=== PATIENT | female | born 1975 ===

== ENCOUNTER → 2020-07-20 08:46 | Outpatient (CLI) | payer OTHER, SELFPAY ==
[2020-07-20] MEDS: COVID-19 VACC #1, MRNA(MOD) 100 MCG/0.5 ML VIAL IM (08:48)
== END ==
PROVIDERS: Visit Provider Internal Medicine
DX: Z23 Encounter for immunization (principal)
CPT/HCPCS: 0011A; 91301

== ENCOUNTER → 2020-08-17 08:27 | Outpatient (CLI) | payer OTHER, SELFPAY ==
[2020-08-17] MEDS: COVID-19 VACC #2, MRNA(MOD) 100 MCG/0.5 ML VIAL IM (08:34)
== END ==
PROVIDERS: Visit Provider Internal Medicine
DX: Z23 Encounter for immunization (principal)
CPT/HCPCS: 0012A; 91301

== ENCOUNTER 2020-10-25 12:23 | Emergency (ER) | payer OTHER, SELFPAY ==
[2020-10-25 12:26] VITALS: BP 125/81; PULSE 80; RESP 18; TEMP 36.7; O2SAT 100; BMI 19.1
[2020-10-25 13:05] VITALS: BP 134/79; PULSE 79; RESP 24; TEMP 36.8; O2SAT 99
--- NOTE | 2020-10-25 15:20 | ED.ALLEREA ---
HPI - Allergic Reaction General Chief complaint: Allergic Reaction Stated complaint: 20 WASP STINGS, ALLERGIC Time Seen by Provider: 10/25/20 15:18 Source: patient Mode of arrival: Ambulatory Limitations: no limitations History of Present Illness HPI narrative: This is a 45-year-old female comes emergency department with complaint of multiple wasp stings. Patient was running today on [address] in the [facility]. She thinks her daughter may have run through a wasp nest and she was stung approximately 20 times on her torso and buttocks and extremities. Patient states she did note while she was running initially she had some tightening of her airway, she had hives and itchiness even his ears felt itchy. This slowly subsided. Her hives and swelling have been improving while she has been here as well as her itching. Patient is otherwise healthy no other major medical issues. She states she was stung 4 times last summer and had subsequently strong reactions the time with larger larger areas of hives. The very last time she felt a little tightness in her throat which resolved and this occurred again today and seemed a little bit stronger. 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 Related Data Previous Rx's Medication Instructions Recorded epinephrine 0.3 mg/0.3 mL 0.3 mg IM Q5-15M PRN #2 ea 10/25/20 injection, auto-injector (EpiPen) prednisone 10 mg tablet 10 mg PO DAILY #3 tab 10/25/20 Allergies Allergy/AdvReac Type Severity Reaction Status Date / Time No Known Drug Allergies Allergy Verified 10/25/20 13:51 Review of Systems Review of Systems ROS Unobtainable: All systems reviewed & are unremarkable except as noted in HPI and below Patient History Social History Smoking Status: Never smoker Smoking Status: Never smoker Substance Use Type: does not use Exam Narrative Exam Narrative: GEN: well nourished, well appearing female, alert and oriented x 3, patient appears to be in mild distress. HEENT: Atraumatic, pupils are equal round reactive to light, extraocular movements are intact, nares are clear, throat is clear without any exudates, erythema, tonsillar enlargement or uvular deviation HEART: Regular rate and rhythm without murmur, clicks, rubs. No carotid bruits, pulses are equal in upper and lower extremities LUNGS:Lungs clear to auscultation, no wheezes, rales, crackles, chest moves symmetrically ABD:bowel sounds normal, soft, non-tender, no guarding, rebound, rigidity, no masses noted, no hepatosplenomegaly MSCL: Non-tender, no muscle atrophy, muscles strength 5/5 upper and lower extremities, full range of motion, normal gait NEURO:CN 2-12 intact, sensation normal. SKIN: Patient has multiple small erythematous papules consistent with wasp or insect stings. No stingers are present. Patient has some faint redness but she states her hives have been improving and I am unable to visualize any large hives currently. Patient does have changes on her torso, back as well as extremities and buttock. Initial Vital Signs Initial Vital Signs: Vital Signs Temperature 98.1 F 10/25/20 12:26 Pulse Rate 80 10/25/20 12:26 Respiratory Rate 18 10/25/20 12:26 Blood Pressure 125/81 10/25/20 12:26 Pulse Oximetry 100 10/25/20 12:26 Course Vital Signs Vital signs: Vital Signs - 8 hr 10/25/20 15:57 Pulse Rate 80 Respiratory Rate 17 Blood Pressure 114/56 L Pulse Oximetry 96 MDM - Allergic Reaction MDM Narrative Medical decision making narrative: This is a 45-year-old female with multiple stings from likely wasps and a reaction. Patient's symptoms improved without intervention but she states she has had increasingly more frequent symptoms with subsequent stings over the years. She was provided with an EpiPen as she did have a sensation of tightness in her throat which had resolved by the time she had arrived. Discharge Plan Departure Patient Disposition: Home Clinical Impression: Allergic to insect bites and stings Instructions: DI for Anaphylaxis Activity Restrictions/Additional Instructions: Follow-up your any other new or concerning symptoms. You may take Benadryl 1-2 tablets every 6 hours as needed for symptoms. Take steroids once daily till gone. Start the first dose today. Prescription sent to [facility] in [place]. If needed a prescription for epi pens was sent to [facility] in [place]. This is a medication that should be refilled once . Use as prescribed. Please return for new swelling of her airway, lips, mouth, lightheadedness or passing out, new or worsening rashes, hives, persistent nausea and vomiting, diarrhea, new chest pain or shortness of breath or wheezing or other new or concerning symptoms. Prescriptions: New epinephrine [EpiPen] 0.3 mg/0.3 mL auto-injector 0.3 mg IM Q5-15M PRN (Reason: anaphylaxis) Qty: 2 RF: 0 prednisone 10 mg tablet 10 mg PO DAILY Qty: 3 RF: 0
[2020-10-25 15:57] VITALS: BP 114/56; PULSE 80; RESP 17; O2SAT 96
== END 2020-10-25 16:02 | disposition home or self-care (01) ==
PROVIDERS: Emergency Provider Emergency Medicine
DX: T63.461A Toxic effect of venom of wasps, accidental (unintentional), initial encounter (principal); T78.40XA Allergy, unspecified, initial encounter
CPT/HCPCS: 99281

== ENCOUNTER → 2021-08-07 14:28 | Outpatient (CLI) | payer OTHER, SELFPAY ==
--- NOTE | 2021-08-07 | DI.MG.S_ITS ---
BILATERAL DIGITAL SCREENING MAMMOGRAM 3D/2D WITH CAD: 08/07/2021 CLINICAL: Routine screening. Comparison is made to exam dated: 03/09/2014 mammogram - outside location. The tissue of both breasts is extremely dense, which lowers the sensitivity of mammography. Current study was also evaluated with a Computer Aided Detection (CAD) system. There are calcifications in the left breast. No significant masses, calcifications, or other findings are seen in either breast. There has been no significant interval change. IMPRESSION: BENIGN There is no mammographic evidence of malignancy. A 1 year screening mammogram is recommended. This exam was interpreted at Station ID: [id number]. NOTE: For mammograms, a report in lay terms will be sent to the patient. Approximately 15% of breast malignancies will not be visualized mammographically. In the management of a palpable breast mass, a negative mammogram must not discourage biopsy of a clinically suspicious lesion. Electronically Signed By: Júnior Goldberg M.D. aty/:08/07/2021 16:05:18 letter sent: Normal Exam ACR BI-RADS Category 2: Benign Finding(s) 3342F
== END ==
PROVIDERS: PCP Family Medicine; Referring Provider Family Medicine; Visit Provider Family Medicine
DX: Z12.31 Encounter for screening mammogram for malignant neoplasm of breast (principal)
CPT/HCPCS: 77063; 77067